=== PATIENT | female | born 1955 | race Caucasian/White ===

== ENCOUNTER → 2023-08-02 | Day surgery (SDC) | payer OTHER ==
[~2023-08-02] VITALS: Ht 154.9 cm; Wt 49.9 kg
[~2023-08-02] MED LIST: ATEN-60 PO; BUPIVACAINE 0.5% P/F INJ 10 ML VIAL ONE; GLYCOPYRROLATE 0.2 MG/ML 1ML VIAL ONE; HYDR12.59 PO; HYDROmorphone HCL 2 MG/ML VL/or syr IV PRN; KETAMINE 50mg/ML 1ml syringe ONE; KETOROLAC TROMETH 30 MG/ML 1ML VIAL ONE; LIDOCAINE 1% INJ PF 5ML AMP ONE; LIDOCAINE W/ EPINEPHRINE 1% 20ML VIAL ONE; LOSA-534 PO; METF-489 PO; MIDAZOLAM HCL 2MG/2ML 2ml VIAL (1mg/ml) ONE; ONDANSETRON HCL 4 MG/2 ML VIAL IV ONE; ONDANSETRON HCL 4 MG/2 ML VIAL ONE; PAR20T PO; PROPOFOL 10 MG/ML 20 ML IV ONE; SIMV20TA20 PO; ceFAZolin 2 GM/D5W50ml 50 ML IV ONE
[2023-08-02 07:57] VITALS: TEMP 97.2; O2SAT 100
[2023-08-02 08:34] VITALS: BP 155/73; PULSE 65; RESP 20; O2SAT 99
== END | disposition home or self-care (01) ==
LOC: SUR 06:09
PROVIDERS: ATTEND Orthopaedic Surgery Sports Medicine
DX: G56.02 Carpal tunnel syndrome, left upper limb (principal); I10 Essential (primary) hypertension; E11.9 Type 2 diabetes mellitus without complications; E78.5 Hyperlipidemia, unspecified; Z79.899 Other long term (current) drug therapy; Z98.890 Other specified postprocedural states; Z87.891 Personal history of nicotine dependence
CPT/HCPCS: 64721; 82962; J0690; J1885; J2250; J2405; J2704; J3490